=== PATIENT | female | born 1975 | race Two or more races ===

== ENCOUNTER 2017-03-15 00:24 | Inpatient (IN) | payer OTHER ==
[~2017-03-15] VITALS: Ht 165.1 cm; Wt 92.5 kg
--- NOTE | 2017-03-15 02:47 | NUR ---
TELEVISION CAMERAMAN ADMIN NOTES PT WAS TRANSFERRED FROM [facility] VIA AMBULANCE. FAMILY AT BEDSIDE. PT IS A/O X4, NO SIGNS OF SOB OR DISTRESS. COMPLAINTS OF HEADACHE AND DIZZINESS. PT IS SB 55 ON TELE MONITOR. HISTORY OF TAI DYSRHYTHMIAS, ASTHMA, ANXIETY, ADHD, RA. PT STATES THAT SHE USUALLY TAKES NITRO FOR CHEST PAIN AND PAIN WOULD BE RELIEVED BUT SHE RAN OUT OF HER PRESCRIPTION. BED IS IN LOW AND LOCKED POSITION, CALL LIGHT WITHIN REACH. WILL CONTINUE TO MONITOR PT
[2017-03-15 03:23] VITALS: BP 126/67
[2017-03-15] MEDS ORDERED: Z GUARD REMEDY 2 OZ OINT TP PRN (04:00)
[2017-03-15] MEDS ORDERED: HYDROCODONE/APAP 5/325MG 1 EACH TABLET PO PRN (04:00)
[2017-03-15] MEDS ORDERED: ONDANSETRON HCL/PF 4 MG/2 ML VIAL IVP PRN (04:00)
[2017-03-15] MEDS ORDERED: MORPHINE SULFATE INJ 2 MG/ML DISP.SYRIN IV PRN (04:00)
[2017-03-15] MEDS ORDERED: NITROGLYCERIN 0.4 MG/TAB BOTTLE SL PRN (04:00)
[2017-03-15] MEDS ORDERED: MAG HYDROX/AL HYDROX/SIMETH 30 ML UDC PO PRN (04:00)
[2017-03-15] MEDS ORDERED: MAGNESIUM HYDROXIDE 30 ML UDC PO PRN (04:00)
[2017-03-15 04:07] LABS: BASOPHILS % (AUTO) 0.5 % (0.0-2.0); EOSINOPHILS # (AUTO) 0.1 /CMM (0.0-0.7); EOSINOPHILS % (AUTO) 1.3 % (0.0-6.0); HEMATOCRIT 35 % (33-45); HEMOGLOBIN 11.8 g/dL (11.5-14.8); LYMPHOCYTES # (AUTO) 2.7 /CMM (0.8-4.8); MEAN CORPUSCULAR HEMOGLOBIN 31 PG (26.0-33.0); MEAN CORPUSCULAR HGB CONC 34 g/dl (31.0-36.0); MEAN CORPUSCULAR VOLUME 93 fL (82-100); MONOCYTES # (AUTO) 0.6 /CMM (0.1-1.30); MONOCYTES % (AUTO) 7.9 % (2.0-12.0); NEUTROPHILS # (AUTO) 3.7 /CMM (1.8-8.9); NEUTROPHILS % (AUTO) 52.3 % (43.0-81.0); PLATELET COUNT (AUTO) 223 /CMM (150-450); RDW COEFFICIENT OF VARIATION 13.3 (11.5-15.0); RED BLOOD CELL COUNT(AUTO) 3.79 MIL/uL (4.0-5.2); WHITE BLOOD COUNT (AUTO) 7.2 K/uL (4.3-11.0)
[2017-03-15] MEDS ORDERED: ACETAMINOPHEN 325 MG TABLET ONE (04:13)
[2017-03-15] MEDS: ACETAMINOPHEN 325 MG TABLET PO PRN ×2 (04:15→14:07)
[2017-03-15 04:18] LABS: CALCIUM, SERUM 8.6 mg/dL (8.5-10.1); CARBON DIOXIDE 27 mmol/L (21-32); CHLORIDE 108 mmol/L (98-107); CREATININE 0.9 mg/dL (0.6-1.3); GLUCOSE 105 mg/dL (74-106); POTASSIUM 3.7 mmol/L (3.5-5.1); SODIUM SERUM 142 mmol/L (136-145); UREA NITROGEN, BLOOD 11 mg/dL (7-18)
[2017-03-15 04:23] LABS: ALANINE AMINOTRANSFERASE 87 U/L (12-78); ALBUMIN 3.6 g/dL (3.4-5.0); ALKALINE PHOSPHATASE 49 U/L (46-116); ASPARTATE AMINOTRANSFERASE 33 U/L (15-37); BILIRUBIN,TOTAL 0.3 mg/dL (0.2-1.0); MAGNESIUM 1.8 mg/dL (1.8-2.4); PHOSPHORUS 4.3 mg/dL (2.5-4.9); TOTAL PROTEIN, SERUM 6.8 g/dL (6.4-8.2)
[2017-03-15 04:24] LABS: TROPONIN I < 0.017 ng/mL (0.00-0.056)
[2017-03-15 04:31] LABS: CHOLESTEROL 180 mg/dL (<200); HDL CHOLESTEROL 31 mg/dL (40-60); LDL 120 mg/dL (0-99); THYROID STIMULATING HORMONE 3.264 uIU/mL (0.358-3.74); TRIGLYCERIDES 208 mg/dL (30-150)
--- NOTE | 2017-03-15 06:23 | NUR ---
MAIL PROCESSING EQUIPMENT MECHANIC CLOSING NOTES PT IS IN BED RESTING. NO SIGNS OF SOB OR DISTRESS. BREATHING EVENLY AND UNLABORED ON RA. NO ACUTE CHANGES. SPECIMEN CUP AT BEDSIDE FOR URINE ANALYSIS. BED IS IN LOW AND LOCKED POSITION, CALL LIGHT WITHIN REACH. WILL ENDORSE TO DAYSHIFT Addendum: 03/15/17 at 0627 by LENA FOURNIER PT IS SB -50 ON THE MONITOR, LOWEST IS 48
--- NOTE | 2017-03-15 07:20 | NUR ---
RN OPENING NOTES RECEIVED PATIENT IN BED RESTING. A/OX4. NO ACUTE DISTRESS, NO SOB NOTED. IV SITE INTACT AND PATENT. BED IN LOWEST POSITION, LOCKED, SIDERAILS UPX2. CALL LIGHT IN REACH. WILL CONTINUE TO MONITOR ACCORDINGLY.
[2017-03-15 08:00] VITALS: BP 101/63
[2017-03-15] MEDS ORDERED: REGADENOSON 0.4 MG/5 ML DISP.SYRIN IVP ONE (09:30)
[2017-03-15] MEDS ORDERED: ASPIRIN 81 MG TAB.CHEW PO SCH (09:30)
[2017-03-15] MEDS ORDERED: NITR0.4T6 SL (09:39)
[2017-03-15] MEDS ORDERED: OMEP20CA10 PO (09:39)
[2017-03-15] MEDS ORDERED: EZET10TA PO (09:39)
[2017-03-15] MEDS ORDERED: OMEG1CAP55 PO (09:39)
[2017-03-15] MEDS ORDERED: CARI350T PO (09:39)
[2017-03-15] MEDS ORDERED: SIMV20TA6 PO (09:39)
[2017-03-15] MEDS ORDERED: CALC-883 PO (09:39)
[2017-03-15] MEDS ORDERED: BUPR300T52 PO (09:45)
[2017-03-15] MEDS ORDERED: TOPI100T11 PO (09:45)
[2017-03-15] MEDS ORDERED: ALLO300T2 PO (09:45)
[2017-03-15] MEDS ORDERED: COLC0.6C3 PO (09:45)
--- NOTE | 2017-03-15 12:00 | NUR ---
RN NOTES PATIENT WENT TO STRESS TEST ACCOMPANIED BY JOSE VIA WHEELCHAIR.
[2017-03-15 13:06] LABS: APPEARANCE,URINE CLEAR (CLEAR); BILIRUBIN,URINE NEGATIVE (NEGATIVE); BLOOD, URINE NEGATIVE Ery/uL (NEGATIVE); COLOR,URINE YELLOW (YELLOW); KETONES,URINE NEGATIVE (NEGATIVE); LEUKOCYTE ESTERASE ,URINE NEGATIVE (NEGATIVE); NITRITE, URINE NEGATIVE (NEGATIVE); PROTEIN,URINE NEGATIVE (NEGATIVE); UGLUCOSE NEGATIVE (NEGATIVE); UROBILINOGEN,URINE 0.2 EU/dL (0.2)
[2017-03-15 16:00] VITALS: BP 118/63
[2017-03-15 16:05] VITALS: BP 118/63
--- NOTE | 2017-03-15 17:09 | NUR ---
RN NOTES DR ZOEY ANDREW ON BEDSIDE, STRESS TEST NEGATIVE; OK TO DISCHARGE PATIENT PER MD.
--- NOTE | 2017-03-15 17:45 | NUR ---
RN NOTES DISCHARGE PATIENT IN STABLE CONDITION ACCOMPANIED BY . DISCHARGE INSTRUCTIONS/TEACHING GIVEN, VERBALIZED UNDERSTANDING. DISCHARGE PAPERWORK GIVEN TO PATIENT. IV SITE D/C, NO COMPLICATIONS NOTED.
== END 2017-03-15 17:45 | disposition home or self-care (01) | DRG 203 ==
LOC: TELE 02:40 → MED 10:58
PROVIDERS: ADMIT Nurse Practitioner Acute Care; ATTEND Nurse Practitioner Acute Care
DX: R07.89 Other chest pain (principal); E66.01 Morbid (severe) obesity due to excess calories; F41.9 Anxiety disorder, unspecified; G89.29 Other chronic pain; Z68.33 Body mass index [BMI] 33.0-33.9, adult
CPT/HCPCS: 36415; 71010-TC; 80053-TC; 80061-TC; 81000-TC; 83735-TC; 84100-TC; 84443-TC; 84484-TC; 85025-TC; 87081-TC; 93307-TC; A9502; J2785; Z7610

== ENCOUNTER 2017-07-01 00:02 | Emergency (ER) | payer OTHER ==
[~2017-07-01] VITALS: Ht 162.6 cm; Wt 68.0 kg
[~2017-07-01 00:02] MED LIST: ALLO300T2 PO; BUPR300T52 PO; CALC-883 PO; CARI350T PO; COLC0.6C3 PO; EZET10TA14 PO; NITR0.4T48 SL; OMEG1CAP55 PO; OMEP20CA10 PO; SIMV20TA6 PO; TOPI100T PO
--- NOTE | 2017-07-01 00:10 | NUR ---
PT BIB FAMILY, PT C/O LOWER ABD PAIN X 1 HOUR PT DENIES N/V/D. PT STATES LL ABD PAIN THAT RADIATES TO THE RL ABD AND TO THE LOWER BACK, WITH PAIN LEVEL 9/10. PT STATES SHE "HAD A CYST REMOVAL SURGERY AND RIGHT OOPHORECTOMY (2014)." RESP EVEN AND UNLABORED. VSS AND NAD NOTED. SKIN PINK AND WARM TO TOUCH. AWAITNG MD DYER. URINE COLLECTED, CALLED LAB FOR PICKUP
[2017-07-01] MEDS ORDERED: MORPHINE SULFATE INJ 4 MG/ML DISP.SYRIN ONE ×2 (00:47→02:18)
[2017-07-01] MEDS ORDERED: ONDANSETRON HCL/PF 4 MG/2 ML VIAL ONE ×2 (00:47→02:24)
[2017-07-01 00:50] LABS: BASOPHILS % (AUTO) 0.4 % (0.0-2.0); EOSINOPHILS # (AUTO) 0.1 /CMM (0.0-0.7); EOSINOPHILS % (AUTO) 1.2 % (0.0-6.0); HEMATOCRIT 36 % (33-45); HEMOGLOBIN 12.4 g/dL (11.5-14.8); LYMPHOCYTES # (AUTO) 2.4 /CMM (0.8-4.8); LYMPHOCYTES % (AUTO) 26.4 % (20.0-44.0); MEAN CORPUSCULAR HEMOGLOBIN 32 PG (26.0-33.0); MEAN CORPUSCULAR HGB CONC 35 g/dl (31.0-36.0); MEAN CORPUSCULAR VOLUME 93 fL (82-100); MONOCYTES # (AUTO) 0.7 /CMM (0.1-1.30); MONOCYTES % (AUTO) 7.7 % (2.0-12.0); NEUTROPHILS # (AUTO) 5.8 /CMM (1.8-8.9); NEUTROPHILS % (AUTO) 64.3 % (43.0-81.0); PLATELET COUNT (AUTO) 223 /CMM (150-450); RDW COEFFICIENT OF VARIATION 12.9 (11.5-15.0); RED BLOOD CELL COUNT(AUTO) 3.85 MIL/uL (4.0-5.2)
--- NOTE | 2017-07-01 00:53 | NUR ---
THIEN PAGED PER RADIOLOGY.
[2017-07-01 01:00] LABS: APPEARANCE,URINE CLEAR (CLEAR); BILIRUBIN,URINE NEGATIVE (NEGATIVE); BLOOD, URINE NEGATIVE Ery/uL (NEGATIVE); COLOR,URINE YELLOW (YELLOW); KETONES,URINE NEGATIVE (NEGATIVE); LEUKOCYTE ESTERASE ,URINE NEGATIVE (NEGATIVE); NITRITE, URINE NEGATIVE (NEGATIVE); PROTEIN,URINE NEGATIVE (NEGATIVE); UGLUCOSE NEGATIVE (NEGATIVE); UROBILINOGEN,URINE 0.2 EU/dL (0.2)
[2017-07-01] MEDS ORDERED: IV NS 0.9% 500 ML BAG IV ONE (01:00)
[2017-07-01] MEDS ORDERED: MORPHINE SULFATE INJ 2 MG/ML DISP.SYRIN IV ONE ×2 (01:00→02:30)
[2017-07-01] MEDS ORDERED: ONDANSETRON HCL/PF 4 MG/2 ML VIAL IVP ONE (01:00)
[2017-07-01 01:04] LABS: CALCIUM, SERUM 8.8 mg/dL (8.5-10.1); CREATININE 0.8 mg/dL (0.6-1.3); POTASSIUM 3.7 mmol/L (3.5-5.1)
[2017-07-01 01:10] LABS: ALBUMIN 3.9 g/dL (3.4-5.0); BILIRUBIN,DIRECT 0.1 mg/dL (0.0-0.2); BILIRUBIN,TOTAL 0.2 mg/dL (0.2-1.0); TOTAL PROTEIN, SERUM 7.7 g/dL (6.4-8.2)
--- NOTE | 2017-07-01 01:20 | NUR ---
Patient is resting comfortably in bed with eyes closed. Easily aroused. VSS
--- NOTE | 2017-07-01 01:35 | NUR ---
THIEN AT BEDSIDE
[2017-07-01 01:37] LABS: INR 0.93 (0.87-1.13)
[2017-07-01] MEDS ORDERED: ONDANSETRON HCL/PF 4 MG/2 ML VIAL IV ONE (02:30)
--- NOTE | 2017-07-01 02:33 | NUR ---
Patient is resting comfortably in bed with eyes closed. Easily aroused. VSS.
--- NOTE | 2017-07-01 03:17 | NUR ---
Patient discharged to home in stable condition. Written and verbal after care instructions given ALONG WITH RX. Patient verbalizes understanding of instruction.IV removed. Catheter intact and site benign. Pressure and 4x4 applied to site. No bleeding noted. Pt ambulated with steady gait. Instructed not to drive.
[2017-07-01 03:20] VITALS: BP 124/84
== END 2017-07-01 03:21 | disposition home or self-care (01) ==
LOC: ER 00:04
DX: D25.9 Leiomyoma of uterus, unspecified (principal); N83.201 Unspecified ovarian cyst, right side; F41.9 Anxiety disorder, unspecified; Z98.51 Tubal ligation status
CPT/HCPCS: 36415; 76856-TC; 80048-TC; 80076-TC; 81000-TC; 84703-TC; 85025-TC; 85730-TC; A4606; J2270; J2405; J7040; Z7610

== ENCOUNTER 2017-08-16 15:08 | Emergency (ER) | payer OTHER ==
[~2017-08-16] VITALS: Ht 167.6 cm; Wt 90.7 kg
--- NOTE | 2017-08-16 17:15 | NUR ---
HEADACHE, BILATERAL LEG TINGLING SENSATION, BOTH EAR PAIN X TUESDAY. NAD NOTED. PT AAO X4, AMB WITH STEADY GAIT. RR EVEN AND UNLABORED.
[2017-08-16 17:28] LABS: BASOPHILS % (AUTO) 0.5 % (0.0-2.0); EOSINOPHILS # (AUTO) 0.1 /CMM (0.0-0.7); EOSINOPHILS % (AUTO) 1.3 % (0.0-6.0); HEMATOCRIT 36 % (33-45); HEMOGLOBIN 12.7 g/dL (11.5-14.8); LYMPHOCYTES # (AUTO) 2.4 /CMM (0.8-4.8); LYMPHOCYTES % (AUTO) 33.9 % (20.0-44.0); MEAN CORPUSCULAR HEMOGLOBIN 32 PG (26.0-33.0); MEAN CORPUSCULAR HGB CONC 35 g/dl (31.0-36.0); MEAN CORPUSCULAR VOLUME 91 fL (82-100); MONOCYTES # (AUTO) 0.4 /CMM (0.1-1.30); MONOCYTES % (AUTO) 5.9 % (2.0-12.0); NEUTROPHILS # (AUTO) 4.1 /CMM (1.8-8.9); NEUTROPHILS % (AUTO) 58.4 % (43.0-81.0); PLATELET COUNT (AUTO) 277 /CMM (150-450); RDW COEFFICIENT OF VARIATION 11.9 (11.5-15.0); RED BLOOD CELL COUNT(AUTO) 3.94 MIL/uL (4.0-5.2)
[2017-08-16] MEDS ORDERED: KETOROLAC TROMETHAMINE INJ 30 MG/ML VIAL IV ONE (17:30)
[2017-08-16] MEDS ORDERED: PROCHLORPERAZINE EDISYLATE 10 MG/2 ML VIAL IVP ONE (17:30)
[2017-08-16] MEDS ORDERED: diphenhydrAMINE HCL 50 MG/ML VIAL IV ONE (17:30)
[2017-08-16] MEDS ORDERED: IV NS 0.9% 1,000 ML BAG IV ONE (17:30)
[2017-08-16 17:39] LABS: CALCIUM, SERUM 9.7 mg/dL (8.5-10.1); CREATININE 0.7 mg/dL (0.6-1.3)
[2017-08-16] MEDS ORDERED: diphenhydrAMINE HCL 50 MG/ML VIAL ONE (17:40)
[2017-08-16] MEDS ORDERED: KETOROLAC TROMETHAMINE INJ 30 MG/ML VIAL ONE (17:41)
[2017-08-16] MEDS ORDERED: PROCHLORPERAZINE EDISYLATE 10 MG/2 ML VIAL ONE (17:41)
[2017-08-16 17:45] LABS: ALBUMIN 3.9 g/dL (3.4-5.0); BILIRUBIN,DIRECT 0.1 mg/dL (0.0-0.2); BILIRUBIN,TOTAL 0.2 mg/dL (0.2-1.0); TOTAL PROTEIN, SERUM 7.9 g/dL (6.4-8.2)
[2017-08-16 18:13] LABS: APPEARANCE,URINE Clear (CLEAR); BILIRUBIN,URINE Negative (NEGATIVE); BLOOD, URINE Trace-intact Ery/uL (NEGATIVE); COLOR,URINE Yellow (YELLOW); KETONES,URINE Negative (NEGATIVE); LEUKOCYTE ESTERASE ,URINE Negative (NEGATIVE); NITRITE, URINE Negative (NEGATIVE); PROTEIN,URINE Negative (NEGATIVE); UGLUCOSE Negative (NEGATIVE); UROBILINOGEN,URINE 0.2 EU/dL (0.2)
[2017-08-16 18:20] LABS: BACTERIA,URINE Rare /HPF (None Seen); SQUAMOUS EPITHELIAL CELL,UR Few /HPF (None Seen); WBC,URINE NONE SEEN /HPF (0-3)
--- NOTE | 2017-08-16 18:22 | NUR ---
MEDICATIONS GIVEN ORDERED
--- NOTE | 2017-08-16 19:06 | NUR ---
REPORT RECEIVED BY ANKIT LOPEZ
--- NOTE | 2017-08-16 20:21 | NUR ---
JEANNE SHAH AT BEDSIDE SPEAKING TO PT AND FAMILY REGARDING RESULTS.
--- NOTE | 2017-08-16 20:33 | NUR ---
IV removed. Catheter intact and site benign. Pressure and 4x4 applied to site. No bleeding noted. Patient discharged to home in stable condition. Written and verbal after care instructions given. Patient verbalizes understanding of instruction. ambulatory with a steady gait.
[2017-08-16 20:34] VITALS: BP 110/87
== END 2017-08-16 20:34 | disposition home or self-care (01) ==
LOC: ER 15:09
DX: R51 Headache (principal); F41.9 Anxiety disorder, unspecified; Z98.51 Tubal ligation status
CPT/HCPCS: 36415; 80048; 80076; 81001; 84703; 85025; 96361; 96374; 96375; 99284; A4606; J0780; J1200; J1885; J7030; Z7610; 81000-TC

== ENCOUNTER 2018-01-29 19:24 | Inpatient (IN) | payer OTHER ==
[~2018-01-29] VITALS: Ht 167.6 cm; Wt 92.5 kg
[2018-01-29] MEDS ORDERED: ASPIRIN 325 MG TABLET ONE (19:58)
[2018-01-29] MEDS ORDERED: NITROGLYCERIN 0.4 MG/TAB BOTTLE ONE (19:58)
[2018-01-29] MEDS ORDERED: IV NS 0.9% 500 ML BAG IV ONE (20:00)
[2018-01-29] MEDS ORDERED: NITROGLYCERIN 0.4 MG/TAB BOTTLE SL ONE (20:00)
[2018-01-29] MEDS ORDERED: ASPIRIN 325 MG TABLET PO ONE (20:00)
[2018-01-29 20:12] LABS: BASOPHILS # (AUTO) 0.1 /CMM (0.0-0.2); HEMATOCRIT 36 % (33-45); HEMOGLOBIN 12.4 g/dL (11.5-14.8); LYMPHOCYTES # (AUTO) 2.6 /CMM (0.8-4.8); LYMPHOCYTES % (AUTO) 27.5 % (20.0-44.0); MEAN CORPUSCULAR HEMOGLOBIN 32 PG (26.0-33.0); MEAN CORPUSCULAR HGB CONC 34 g/dl (31.0-36.0); MEAN CORPUSCULAR VOLUME 94 fL (82-100); MONOCYTES # (AUTO) 0.6 /CMM (0.1-1.30); MONOCYTES % (AUTO) 5.8 % (2.0-12.0); NEUTROPHILS # (AUTO) 6.1 /CMM (1.8-8.9); NEUTROPHILS % (AUTO) 64.7 % (43.0-81.0); PLATELET COUNT (AUTO) 231 /CMM (150-450); RDW COEFFICIENT OF VARIATION 12.3 (11.5-15.0); RED BLOOD CELL COUNT(AUTO) 3.84 MIL/uL (4.0-5.2); WHITE BLOOD COUNT (AUTO) 9.5 K/uL (4.3-11.0)
--- NOTE | 2018-01-29 20:17 | NUR ---
BIB SELF; "CHEST PRESSURE, 02/13 SINCE 2P". PT AAOX3, VSS. PT STS LT SIDE CHEST PAIN / RADIATING TO LT SHOULDER TO LT BACK, CONTINUOUSLY WITH DYSPNEA. DENIES N/V, ARM/JAW PAIN @ THIS TIME. ON MONITOR WITH SB. EKG DONE. WILL CONT TO MONITOR.
[2018-01-29 20:25] LABS: INR 0.88 (0.85-1.15)
[2018-01-29 20:28] LABS: ALANINE AMINOTRANSFERASE 54 U/L (12-78); ALBUMIN 3.5 g/dL (3.4-5.0); ALKALINE PHOSPHATASE 49 U/L (46-116); ASPARTATE AMINOTRANSFERASE 25 U/L (15-37); BILIRUBIN,DIRECT 0.1 mg/dL (0.0-0.2); BILIRUBIN,TOTAL 0.2 mg/dL (0.2-1.0); CALCIUM, SERUM 9.1 mg/dL (8.5-10.1); CARBON DIOXIDE 25 mmol/L (21-32); CHLORIDE 106 mmol/L (98-107); CREATININE 1.1 mg/dL (0.6-1.3); GLUCOSE 102 mg/dL (74-106); SODIUM SERUM 138 mmol/L (136-145); UREA NITROGEN, BLOOD 15 mg/dL (7-18)
[2018-01-29 20:30] LABS: TROPONIN I < 0.017 ng/mL (0.00-0.056)
--- NOTE | 2018-01-29 20:31 | NUR ---
CP 7/10, GIVEN 2ND DOSE OF NITRO 0.4 SL, PT JUAN WELL
--- NOTE | 2018-01-29 20:42 | NUR ---
GIVEN 3RD DOSE OF NITRO 0.4 MG SL. PT STS LT CHEST PAIN 12/13. LAMIN, STRATEGIC PLANNING DIRECTOR AWARE.
--- NOTE | 2018-01-29 21:23 | NUR ---
PT STILL C/O LT SIDE CP, 12/13. DENIES SOB, DIZZINESS, N/V, ARM/JAW PAIN @ THIS TIME. LAMIN, PRE SALES TECHNICAL CONSULTANT AWARE.
--- NOTE | 2018-01-29 21:26 | NUR ---
CALLED NURSING INFORMATION DIRECTOR AND REQUESTED A TELE BED FOR THIS PT.
--- NOTE | 2018-01-29 21:29 | NUR ---
CALLED [facility] FOR PANEL CALL AND ANNEL WAGNER WAS PAGED
[2018-01-29] MEDS ORDERED: NITROGLYCERIN PACKET 1 GM PACKET TOP ONE (21:30)
--- NOTE | 2018-01-29 21:48 | NUR ---
PT IS ASSIGNED TO [facility]#: [id number], DX: CHEST PAIN, AND ACCEPTING: ANNEL WAGNER DNP.
[2018-01-29] MEDS ORDERED: NITROGLYCERIN PACKET 1 GM PACKET ONE (21:54)
--- NOTE | 2018-01-29 22:15 | NUR ---
ADMISSION NOTES: Received report from NEWSPERSON Eliud. Pt was brought to the unit via gurney, admitted for chest pain. Pt was came in to er for chest pressure 9/10 that started since 0200pm and she took her own nitroglycerin medication. Now pt stated she felt a lot better and that its only pressure on her chest area, non radiating, 5/10, left cw nitrobid patch noted. Iv access on right ac patent and flushing well, on hl. No s/s of infiltration or redness noted on iv site. vs taken and recorded. Skin assessment performed and no skin issues noted. Met at bed side. will bring all pt's medication bottle at home. Placed on tele monitoring currently sinus bradycardia hr 50's, per pt this is normal for her, even her son and 2 sisters have same problem. She added that when she's asleep her heart rate drops to 30's, and has worn heart monitor at home as prescribed by her jeeper operator. Oriented pt to unit policy and hourly rounding, use of call light. Inventory of belongings completed by jose miguel de leon. Safety precautions for fall initiated, call light in reach, will continue monitoring pt.
[2018-01-29 22:30] VITALS: BP 127/69
--- NOTE | 2018-01-29 22:30 | NUR ---
rn notes: pt stated she feels fine at the moment, still with 5/10 pressure like pain in the chest area, offered nitroglycerin but pt refused, stated she will call wqhenever she cannot tolerate the pt. She added the pressure is tolerable
[2018-01-29] MEDS ORDERED: ZOLPIDEM TARTRATE 5 MG TABLET PO PRN (23:00)
[2018-01-29] MEDS ORDERED: CARISOPRODOL 350 MG TABLET PO SCH (23:00)
[2018-01-29] MEDS ORDERED: ONDANSETRON HCL/PF 4 MG/2 ML VIAL IVP PRN (23:00)
[2018-01-29] MEDS ORDERED: ACETAMINOPHEN 325 MG TABLET PO PRN (23:00)
[2018-01-29] MEDS: NITROGLYCERIN PACKET 1 GM PACKET TOP SCH (23:00)
[2018-01-29] MEDS ORDERED: MAGNESIUM HYDROXIDE 30 ML UDC PO PRN (23:00)
[2018-01-29 23:59] VITALS: BP 101/56
[2018-01-30] VITALS (11 sets, daily range): BP systolic 96–110; BP diastolic 54–70
[2018-01-30] MEDS ORDERED: NIFE30TA89 PO (00:02)
[2018-01-30] MEDS ORDERED: PREG150C PO (00:02)
--- NOTE | 2018-01-30 00:16 | NUR ---
non admin of nitro bid: pt received nitro bid patch administration in er at 2156 01/29/18, only about 2hrs ago.
[2018-01-30] MEDS: ENOXAPARIN SODIUM 40 MG/0.4 ML DISP.SYRIN SQ SCH ×2 (00:24→22:39)
--- NOTE | 2018-01-30 04:15 | NUR ---
rn notes: pt sleeping at this time, no facial grimace noted, will continue monitoring pt
[2018-01-30] MEDS: NITROGLYCERIN 0.4 MG/TAB BOTTLE SL PRN ×3 (06:05→06:21)
--- NOTE | 2018-01-30 06:06 | NUR ---
PRN NITROGLYCERIN SL: PT C/O CHEST PRESSURE 7/10 REQUESTING FOR NITROGLYCERIN, PRN NITROGLYCERIN ADMINISTERED SL, VS TAKEN AND RECORDED PRIOR TO ADMINISTERING MEDICATION.
--- NOTE | 2018-01-30 06:16 | NUR ---
PRN NITROGLYCERIN: CHEST PRESSURE C/O 7/10 WITHOUT RELIEF, 2ND DOSE OF NITROGLYCERIN SL ADMINISTERED AT THIS TIME, VS TAKEN AND RECORDED 104/56 HR 50, RR 18
--- NOTE | 2018-01-30 06:22 | NUR ---
3RD DOSE OF NITRO SL: VS TAKEN AND RECORDED, PT STILL C/O 7/10 CHEST PAIN RADIATING TO BACK AND LEFT ARM, 3RD DOSE OF NITRO SL ADMINISTERED AT THIS TIME.
--- NOTE | 2018-01-30 06:26 | NUR ---
RN NOTES: CONTACTED MD INFORMATION SYSTEMS SUPERVISOR PT STILL C/O CHEST PRESSURE 7/10 WITH NO RELIEF FROM NITROGLYCERIN SL, NO OTHER PAIN MEDICATION ORDERED FOR CHEST PAIN
--- NOTE | 2018-01-30 06:27 | NUR ---
RN NOTES: RECEIVED CALL FROM DR WAGNER WITH ORDERS TO GIVE MORPHINE 2MG IVP Q2HRS PRN FOR CHEST PAIN, STAT EKG
[2018-01-30 06:31] LABS: BASOPHILS % (AUTO) 0.4 % (0.0-2.0); EOSINOPHILS % (AUTO) 1.4 % (0.0-6.0); HEMATOCRIT 35 % (33-45); HEMOGLOBIN 11.6 g/dL (11.5-14.8); LYMPHOCYTES # (AUTO) 2.6 /CMM (0.8-4.8); LYMPHOCYTES % (AUTO) 34.2 % (20.0-44.0); MEAN CORPUSCULAR HEMOGLOBIN 32 PG (26.0-33.0); MEAN CORPUSCULAR HGB CONC 33 g/dl (31.0-36.0); MEAN CORPUSCULAR VOLUME 98 fL (82-100); MONOCYTES # (AUTO) 0.5 /CMM (0.1-1.30); MONOCYTES % (AUTO) 6.5 % (2.0-12.0); NEUTROPHILS # (AUTO) 4.4 /CMM (1.8-8.9); NEUTROPHILS % (AUTO) 57.5 % (43.0-81.0); PLATELET COUNT (AUTO) 200 /CMM (150-450); RDW COEFFICIENT OF VARIATION 13.3 (11.5-15.0); WHITE BLOOD COUNT (AUTO) 7.7 K/uL (4.3-11.0)
[2018-01-30] MEDS: MORPHINE SULFATE INJ 4 MG/ML DISP.SYRIN IV PRN ×2 (06:42→10:37)
--- NOTE | 2018-01-30 06:42 | NUR ---
PRN MORPHINE: PT C/O 8/10 CHEST PRESSURE RADIATING TO ARM AND BACK PRN MORPHINE 2MG IVP ADMINISTERED AT THIS TIME.
--- NOTE | 2018-01-30 06:47 | NUR ---
RN NOTES: EKG SHOWS SINUS BRADYCARDIA
[2018-01-30 06:48] LABS: ALBUMIN 3.1 g/dL (3.4-5.0); BILIRUBIN,TOTAL 0.2 mg/dL (0.2-1.0); CALCIUM, SERUM 8.3 mg/dL (8.5-10.1); CREATININE 0.8 mg/dL (0.6-1.3); PHOSPHORUS 3.7 mg/dL (2.5-4.9); TOTAL PROTEIN, SERUM 6.5 g/dL (6.4-8.2)
--- NOTE | 2018-01-30 06:58 | NUR ---
RN CLOSING NOTES: PT IN BED, AWAKE,JUST RECEIVED MORPHINE IV FOR C/O CHEST PAIN RADIATING TO BACK AND ARM STATED ITS TOLERABLE. EDUCATION PROVIDED TO THE PT. REMAINS ON SINUS BRADYCARDIA HR 51. ON 2L OXYGEN VIA NC, RESPIRATION EVEN AND UNLABORED. VS REMAINS STABLE, NEEDS ATTENDED. FOR ECHO TODAY. SAFETY PRECAUTIONS FOR FALL REMAINS ENGAGED, CALL LIGHT IN REACH, WILL ENDORSE TO DAY RN FOR CONTUITY OF CARE.
[2018-01-30] MEDS ORDERED: MORPHINE SULFATE INJ 2 MG/ML DISP.SYRIN IV PRN (07:00)
--- NOTE | 2018-01-30 07:52 | NUR ---
MS/RN Patient received Patient received from park attendant. A/O X4, vital signs stable, states that pain is currently 7/10 but has improved since pain medication was administered 20 minutes ago. Safety measurs in place, aware of how to call for help. Will continue to monitor and ensure safety.
[2018-01-30] MEDS: COLCHICINE 0.6 MG TABLET PO SCH (08:28)
[2018-01-30] MEDS: EZETIMIBE 10 MG TABLET PO SCH (08:28)
[2018-01-30] MEDS: ASPIRIN EC 81 MG TABLET.DR PO SCH (08:28)
[2018-01-30] MEDS: ALLOPURINOL 100 MG TABLET PO SCH (08:29)
[2018-01-30] MEDS: PANTOPRAZOLE 40 MG TABLET.DR PO SCH (08:29)
[2018-01-30] MEDS: NITROGLYCERIN PACKET 1 GM PACKET TOP SCH ×2 (08:29→22:29)
[2018-01-30] MEDS: TOPIRAMATE 100 MG TABLET PO SCH (08:29)
[2018-01-30] MEDS: BUPROPION XL 150 MG TAB.ER.24 PO SCH (08:30)
--- NOTE | 2018-01-30 08:56 | NUR ---
MS/RN Mediations Morning medications administered as ordered, nitro paste held due to hypotension /.
[2018-01-30 09:07] LABS: THYROID STIMULATING HORMONE 4.16 uIU/mL (0.358-3.74)
--- NOTE | 2018-01-30 10:40 | NUR ---
MS/RN C/O Chest pain Complaining of chest pain, no radiating to left arm. Dr Mcclain aware, morphine 2mg administered. Will reassess effectiveness.
--- NOTE | 2018-01-30 10:47 | NUR ---
MS/RN S/B Dr Mcclain Seen by Dr cMclain - labs ordered for tomorrow, await cardiac consult.
--- NOTE | 2018-01-30 12:30 | NUR ---
MS/payable representative reading Tele monitor reading SB, heartrate reading 58.
--- NOTE | 2018-01-30 18:10 | NUR ---
MS/RN End note Patient remains in stable condition, pain now 6/10 which per patient is tolerable. Blood pressure on low side but within normal range for patient. Has remained SB - NSR on monitor. All needs attended, will endorse to production supervisor off shift.
--- NOTE | 2018-01-30 20:00 | NUR ---
TELE/RN OPENING NOTES PATIENT IN BED, ALERT, ORIENTED, RESPIRATIONS EVEN AND UNLABORED, SUPERVISED FOR BATHROOM PROVELEGES, SKIN WARM TO TOUCH, TELE READING AT SR 62, ALERT, ORIENTED X4, RIGHT AC GAUGE 20 PATENT, B/P IN LOW SIDE, PROVIDED FLUIDS, MONITORING FOR ANY DISCOMFORT, ON OXYGEN VIA NC AT 2 LITER. WILL MONITOR .PROVIDE FLUIDS, KEEP COMFORTABLE.
[2018-01-30] MEDS ORDERED: SIMVASTATIN 20 MG TABLET PO SCH (22:00)
[2018-01-31 04:00] VITALS: BP 112/60
[2018-01-31 07:17] LABS: BASOPHILS % (AUTO) 0.3 % (0.0-2.0); EOSINOPHILS % (AUTO) 1.1 % (0.0-6.0); HEMATOCRIT 36 % (33-45); HEMOGLOBIN 12.2 g/dL (11.5-14.8); LYMPHOCYTES # (AUTO) 2.4 /CMM (0.8-4.8); MEAN CORPUSCULAR HEMOGLOBIN 32 PG (26.0-33.0); MEAN CORPUSCULAR HGB CONC 34 g/dl (31.0-36.0); MEAN CORPUSCULAR VOLUME 97 fL (82-100); MONOCYTES # (AUTO) 0.5 /CMM (0.1-1.30); MONOCYTES % (AUTO) 6.5 % (2.0-12.0); NEUTROPHILS # (AUTO) 5.1 /CMM (1.8-8.9); NEUTROPHILS % (AUTO) 63.1 % (43.0-81.0); PLATELET COUNT (AUTO) 214 /CMM (150-450); RDW COEFFICIENT OF VARIATION 13.3 (11.5-15.0); RED BLOOD CELL COUNT(AUTO) 3.75 MIL/uL (4.0-5.2); WHITE BLOOD COUNT (AUTO) 8.1 K/uL (4.3-11.0)
[2018-01-31 07:32] LABS: CALCIUM, SERUM 8.6 mg/dL (8.5-10.1); CREATININE 0.9 mg/dL (0.6-1.3); MAGNESIUM 1.9 mg/dL (1.8-2.4); PHOSPHORUS 3.9 mg/dL (2.5-4.9); POTASSIUM 3.7 mmol/L (3.5-5.1)
--- NOTE | 2018-01-31 07:39 | NUR ---
313-1 TELE/RN NOTES PATIENT ABLE TO SLEEP DURING THE NIGHT, MONITORED FOR ANY CHANGES, TELE AT SINUS RHTYM AND SINUS TAI AT 57. PROVIDED FLUIDS, TOOK SIP OF WATER. MONITORED AND WILL ENDORSE TO AM RN FOR MERCEDEZ. CALL LIGHTS WITHIN REACH, BED IN LOCK POSITION,
--- NOTE | 2018-01-31 07:40 | NUR ---
WAITER/WAITRESS CAFETERIA OPENING NOTE RECEIVED PT IN BED FROM SHADE MATCHER RN, AA0X4, DENIES N/V, SOB, PER PT PAIN IS ABLE TO TOLERATE PAIN AT THIS TIME. SB ON DISTRIBUTOR SALES MANAGER. ALL NEEDS ATTENDED TO, SAFETY MEASURES IN PLACE, CALL LIGHT WITHIN REACH, WILL CONTINUE TO MONITOR AND ENSURE SAFETY.
[2018-01-31 08:00] VITALS: BP 101/60
[2018-01-31] MEDS: TOPIRAMATE 100 MG TABLET PO SCH (08:21)
[2018-01-31] MEDS: BUPROPION XL 150 MG TAB.ER.24 PO SCH (08:21)
[2018-01-31] MEDS: ASPIRIN EC 81 MG TABLET.DR PO SCH (08:21)
[2018-01-31] MEDS: EZETIMIBE 10 MG TABLET PO SCH (08:21)
[2018-01-31] MEDS: PANTOPRAZOLE 40 MG TABLET.DR PO SCH (08:21)
[2018-01-31] MEDS: COLCHICINE 0.6 MG TABLET PO SCH (08:21)
[2018-01-31] MEDS: ALLOPURINOL 100 MG TABLET PO SCH (08:22)
--- NOTE | 2018-01-31 09:42 | NUR ---
WAREHOUSE ORDER PICKER LAB REVIEWS ALL MORNING LABS REVIEWED. VALUES WITHIN NORMAL RANGE.
[2018-01-31] MEDS: NITROGLYCERIN PACKET 1 GM PACKET TOP SCH (11:00)
[2018-01-31 12:00] VITALS: BP 104/60
[2018-01-31] MEDS ORDERED: ASPI-1152 PO (14:52)
--- NOTE | 2018-01-31 16:18 | NUR ---
MS BENEFITS ANALYST PLAN PT SEEN BY ARVIN NULL AND CLEARED TO D/C HOME TODAY. INSTRUCTED TO FOLLOW UP WITH CLINICAL CYTOGENETICIST SCIENTIST AND PRIMARY CARE DOCTOR IN FIVE TO TEN DAYS. PER PT, HAS APPOINTMENT WITH CLINICAL CYTOGENETICIST SCIENTIST TOMORROW. PT INSTRUCTED TO START ASPIRIN 81MG QDAY, NO PRESCRIPTION GIVEN MEDICATION IS OTC. TO CONTINUE WITH PREVIOUS HOME MEDICATIONS, NO CHANGE IN DOSAGE OR SCHEDULE. TELE AND NAME BAND REMOVED, HEP LOCK REMOVED AND PRESSURE DRESSING APPLIED, CATHETER INTACT. ALL BELONGINGS ACCOUNTED FOR, PERSONAL PROPERTY LIST SIGNED BY PT. INSTRUCTED PT TO RETURN TO THE NEAREST ER FOR ANY SEVERE CHEST PAIN NOT RELIEVED BY REST. TIME ALLOWED FOR ALL QUESTIONS AND CONCERNS TO BE ADDRESSED. AWAITING TO PROVIDE TRANSPORT HOME.
--- NOTE | 2018-01-31 16:50 | NUR ---
MS SEWAGE PLANT OPERATOR PT DISCHARGED TO MAIN LOBBY WITH AND CREMATORY ATTENDANT.
== END 2018-01-31 16:31 | disposition home or self-care (01) | DRG 203 ==
LOC: ER 19:33 → TELE 22:11 → MED 01-31 15:05
PROVIDERS: ADMIT Nurse Practitioner Acute Care; ATTEND Nurse Practitioner Acute Care
DX: M94.0 Chondrocostal junction syndrome [Tietze] (principal); E66.01 Morbid (severe) obesity due to excess calories; E78.5 Hyperlipidemia, unspecified; G89.4 Chronic pain syndrome; M79.7 Fibromyalgia; Z68.32 Body mass index [BMI] 32.0-32.9, adult; F32.9 Major depressive disorder, single episode, unspecified; M54.5 Low back pain; F41.9 Anxiety disorder, unspecified; M10.9 Gout, unspecified
CPT/HCPCS: 36415; 71045-TC; 80048-TC; 80053-TC; 80061-TC; 80076-TC; 83735-TC; 84100-TC; 84443-TC; 84484-TC; 85025-TC; 85730-TC; 87081-TC; 93307-TC; A4606; J1650; J2270; J2405; J7040; Z7610

== ENCOUNTER 2018-03-13 21:46 | Emergency (ER) | payer OTHER ==
[~2018-03-13] VITALS: Ht 165.1 cm; Wt 95.7 kg
[~2018-03-13 21:46] MED LIST changes: +ASPI-1152 PO; +PREG150C PO
--- NOTE | 2018-03-13 21:50 | NUR ---
PT BIBFAMILY COMPLAINING OF HEADACHE ALL DAY RT ARM PAIN AND NUMBNESS RADIATING TO RT LE X1 HOUR. PT HAS LEFT FACIAL DROOPING AND WEAKNESS IN RIGHT UPPER AND LOWER EXTREMITIES. PT IS AWAKE. DIFFICULTY SPEAKING. SKIN WARM AND INTACT. RESPIRATIONS EVEN AND UNLABORED. PT PLACED IN GOWN AND ON CONTINUOUS CARDIAC MONITORING.
--- NOTE | 2018-03-13 22:08 | NUR ---
CODE STROKE ACTIVATED
--- NOTE | 2018-03-13 22:10 | NUR ---
AWAITING CALL BACK FROM NEUROLOGIST DR. BOUDREAUX
--- NOTE | 2018-03-13 22:10 | NUR ---
DESKTOP SUPPORT ASSOCIATE AT BEDSIDE FOR BLOOD DRAW
[2018-03-13] MEDS ORDERED: IV NS 0.9% 250 ML IV ONE (22:11)
[2018-03-13] MEDS ORDERED: IOHEXOL-350 100 ML VIAL IV ONE (22:11)
[2018-03-13] MEDS ORDERED: CT SWABBABLE VALVE TRANS SET 1 EA INFUS.SET MC ONE (22:11)
--- NOTE | 2018-03-13 22:12 | NUR ---
EKG AT BEDSIDE
--- NOTE | 2018-03-13 22:15 | NUR ---
BROUGHT BY RADIOLOGY TO CT PER ALCS PROTOCOL
--- NOTE | 2018-03-13 22:16 | NUR ---
NEUROLOGIST DR. BOUDREAUX CALLED BACK AND SPOKE WITH DR. MACIAS
[2018-03-13 22:21] LABS: BASOPHILS % (AUTO) 0.3 % (0.0-2.0); EOSINOPHILS % (AUTO) 0.9 % (0.0-6.0); HEMATOCRIT 39 % (33-45); HEMOGLOBIN 12.5 g/dL (11.5-14.8); LYMPHOCYTES # (AUTO) 4.1 /CMM (0.8-4.8); LYMPHOCYTES % (AUTO) 34.1 % (20.0-44.0); MEAN CORPUSCULAR HGB CONC 33 g/dl (31.0-36.0); MEAN CORPUSCULAR VOLUME 95 fL (82-100); MONOCYTES # (AUTO) 0.8 /CMM (0.1-1.30); MONOCYTES % (AUTO) 6.6 % (2.0-12.0); NEUTROPHILS # (AUTO) 6.9 /CMM (1.8-8.9); NEUTROPHILS % (AUTO) 58.1 % (43.0-81.0); PLATELET COUNT (AUTO) 258 /CMM (150-450); RDW COEFFICIENT OF VARIATION 12.9 (11.5-15.0); RED BLOOD CELL COUNT(AUTO) 4.04 MIL/uL (4.0-5.2); WHITE BLOOD COUNT (AUTO) 11.9 K/uL (4.3-11.0)
--- NOTE | 2018-03-13 22:25 | NUR ---
PT BEING EVALUATED BY TELENEUROLOGIST
--- NOTE | 2018-03-13 22:25 | NUR ---
PT BROUGHT BACK FROM RADIOLOGY
[2018-03-13] MEDS ORDERED: ONDANSETRON HCL/PF 4 MG/2 ML VIAL ONE (22:26)
[2018-03-13] MEDS ORDERED: MORPHINE SULFATE INJ 2 MG/ML DISP.SYRIN ONE (22:27)
[2018-03-13] MEDS ORDERED: MORPHINE SULFATE INJ 4 MG/ML DISP.SYRIN ONE (22:27)
[2018-03-13] MEDS: MORPHINE SULFATE INJ 2 MG/ML DISP.SYRIN IV ONE (22:34)
[2018-03-13 22:35] LABS: CALCIUM, SERUM 8.9 mg/dL (8.5-10.1); CARBON DIOXIDE 26 mmol/L (21-32); CHLORIDE 105 mmol/L (98-107); CREATININE 0.8 mg/dL (0.6-1.3); GLUCOSE 80 mg/dL (74-106); INR 0.9 (0.87-1.13); POTASSIUM 3.7 mmol/L (3.5-5.1); SODIUM SERUM 141 mmol/L (136-145); UREA NITROGEN, BLOOD 10 mg/dL (7-18)
[2018-03-13] MEDS: ONDANSETRON HCL/PF - ER 4 MG/2 ML VIAL IV ONE (22:35)
[2018-03-13 22:39] LABS: TROPONIN I < 0.017 ng/mL (0.00-0.056)
[2018-03-13 22:48] LABS: CHOLESTEROL 218 mg/dL (<200); HDL CHOLESTEROL 34 mg/dL (40-60); LDL 149 mg/dL (0-99); TRIGLYCERIDES 302 mg/dL (30-150)
--- NOTE | 2018-03-13 22:50 | NUR ---
CONSENT GIVEN BY PT TO START TPA
--- NOTE | 2018-03-13 23:00 | NUR ---
TPA ADMINSITERED IV LEFT AC 18G. VITAL SIGNS STABLE. PT ON CONTINUOUS CARDIAC MONITORING
[2018-03-13] MEDS: ALTEPLASE 100 MG in WATER FOR INJECTION,STERILE 100 ML IV ONE (23:01)
--- NOTE | 2018-03-13 23:01 | NUR ---
TPA DRIP ADMINISTERED, RATE 78.1 ML/HR. IV LEFT AC 18G. PT IS AWAKE. VITAL SIGNS STABLE. PT STILL ON CONTINUOUS ROVING OR YARN COLOR CHECKER. WILL CONTINUE TO MONITOR ACCORDINGLY.
--- NOTE | 2018-03-13 23:03 | NUR ---
PT BROUGHT BY RADIOLOGY PER ACLS PROTOCOL
--- NOTE | 2018-03-13 23:15 | NUR ---
PT BROUGHT BACK FROM CT
--- NOTE | 2018-03-14 00:01 | NUR ---
TPA INFUSION COMPLETED. NORMAL SALINE INFUSING AT 78.1ML/HR. NO SIGNS OF ADVERSE REACTION. PT AWAKE, SPEAKING TO SPOUSE. NOTED MILD IMPROVEMENT RIGHT UPPER AND LOWER EXTREMITIES. DENIES NEW OR WORSENING SYMPTOMS AT THIS TIME. RESPIRATIONS EVEN AND UNLABORED. NONDIAPHORETIC. PT STILL ON CONTINUOUS THERAPEUTIC RECREATION ASSISTANT AND O2 2L. VITALS SIGNS STABLE. WILL CONTINUE TO MONITOR.
--- NOTE | 2018-03-14 00:30 | NUR ---
Note vijay in EDM - 03/14/18 at 0047 by [place] PT AWAKE. NOTED IMPROVEMENT IN SPEECH AND LEFT UPPER EXTREMITY STRENGTH. VITAL SIGNS STABLE. RESPIRATIONS EVEN AND UNLABORED. SKIN WARM AND INTACT. NO ACUTE DISTRESS NOTED AT THIS TIME. PT ON CONTINUOUS BOILER TENDER
--- NOTE | 2018-03-14 00:34 | NUR ---
RECEIVED A CALLF FROM [facility] NURSE HEAVEN AT [facility] AND WAS TOLD THAT THEY WOULD BE HERE WITHIN 15-20 MIN TO TAKE THE PT. NUMBER FOR REPORT IS [phone], PT IS GOING TO RM #: [id number]
[2018-03-14] MEDS ORDERED: MORPHINE SULFATE INJ 4 MG/ML DISP.SYRIN ONE ×2 (00:36→01:16)
[2018-03-14] MEDS: MORPHINE SULFATE INJ 10 MG/ML DISP.SYRIN IV ONE (00:43)
[2018-03-14 00:45] VITALS: BP 122/66
--- NOTE | 2018-03-14 00:47 | NUR ---
PT AWAKE. NOTED IMPROVEMENT IN SPEECH AND RIGHT UPPER EXTREMITY STRENGTH. VITAL SIGNS STABLE. RESPIRATIONS EVEN AND UNLABORED. SKIN WARM AND INTACT. NO ACUTE DISTRESS NOTED AT THIS TIME. PT ON CONTINUOUS MILITARY PAY CLERK
--- NOTE | 2018-03-14 00:54 | NUR ---
[facility] AT BEDSIDE FOR TRANSFER. REPORT GIVEN TO ANKIT COLLADO FOR MERCEDEZ.
[2018-03-14] MEDS ORDERED: ALTEPLASE 100 MG/VIAL VIAL IV ONE (01:00)
[2018-03-14] MEDS: MORPHINE SULFATE INJ 2 MG/ML DISP.SYRIN IV ONE (01:20)
== END 2018-03-14 01:23 ==
LOC: ER 21:54
DX: I63.9 Cerebral infarction, unspecified (principal); G43.909 Migraine, unspecified, not intractable, without status migrainosus; F17.200 Nicotine dependence, unspecified, uncomplicated; F41.9 Anxiety disorder, unspecified; M19.90 Unspecified osteoarthritis, unspecified site; R29.702 NIHSS score 2; Z98.51 Tubal ligation status; Z79.82 Long term (current) use of aspirin; Z79.899 Other long term (current) drug therapy
CPT/HCPCS: 36415; 70450; 70496; 70498; 71045; 80048; 80061; 82962; 84484; 85025; 85730; 93005; 96374; 96375; 96376; 99291; 99406; A4216; A4606; J2270 ×4; J2405 ×2; J2997; J7050; Q9967; Z7610

== ENCOUNTER 2018-08-01 23:26 | Emergency (ER) | payer OTHER ==
[~2018-08-01] VITALS: Ht 167.6 cm; Wt 90.7 kg
--- NOTE | 2018-08-02 00:11 | NUR ---
PT BIBS. C/O "HAVE HAD A HEADACHE FOR 2 DAYS NOW" -SOB -ACUTE DISTRESS AOX4. -CHANGES IN CONSCIOUSNESS. -ACUTE NEURO DEFICIT.
[2018-08-02] MEDS ORDERED: PROCHLORPERAZINE EDISYLATE 10 MG/2 ML VIAL ONE (00:24)
[2018-08-02] MEDS ORDERED: ONDANSETRON HCL/PF 4 MG/2 ML VIAL ONE (00:24)
[2018-08-02] MEDS: ONDANSETRON HCL/PF 4 MG/2 ML VIAL IVP ONE (00:28)
[2018-08-02] MEDS: PROCHLORPERAZINE EDISYLATE 10 MG/2 ML VIAL IV ONE (00:28)
[2018-08-02] MEDS: IV NS 0.9% 1,000 ML BAG IV ONE (00:28)
[2018-08-02 01:42] VITALS: BP 133/91
== END 2018-08-02 01:52 | disposition home or self-care (01) ==
LOC: ER 23:30
DX: G43.909 Migraine, unspecified, not intractable, without status migrainosus (principal); M79.7 Fibromyalgia; M19.90 Unspecified osteoarthritis, unspecified site; F41.9 Anxiety disorder, unspecified; F17.200 Nicotine dependence, unspecified, uncomplicated; Z86.73 Personal history of transient ischemic attack (TIA), and cerebral infarction without residual deficits; Z98.890 Other specified postprocedural states; Z79.82 Long term (current) use of aspirin; Z79.899 Other long term (current) drug therapy
CPT/HCPCS: 96374; 96375; 99283; A4606; J0780; J2405; J7030

== ENCOUNTER 2018-10-02 13:32 | Emergency (ER) | payer OTHER ==
[~2018-10-02] VITALS: Ht 167.6 cm; Wt 98.0 kg
--- NOTE | 2018-10-02 13:53 | NUR ---
PATIENT ARRIVED AT UNIT AMBULATORY, WITH C/O HEADACHE, BURNING SENSATION ON MID ABDOMEN, FEELING SHAKY
[2018-10-02 14:13] LABS: APPEARANCE,URINE Clear (CLEAR); BILIRUBIN,URINE Negative (NEGATIVE); BLOOD, URINE Trace-intact Ery/uL (NEGATIVE); COLOR,URINE Yellow (YELLOW); KETONES,URINE Negative (NEGATIVE); LEUKOCYTE ESTERASE ,URINE Negative (NEGATIVE); NITRITE, URINE Negative (NEGATIVE); PH,URINE 6.5 (5.0-8.0); PROTEIN,URINE Negative (NEGATIVE); UGLUCOSE Negative (NEGATIVE); UROBILINOGEN,URINE 0.2 EU/dL (0.2)
[2018-10-02] MEDS ORDERED: MORPHINE SULFATE INJ 4 MG/ML DISP.SYRIN ONE (14:16)
[2018-10-02] MEDS ORDERED: FAMOTIDINE/PF INJ 20 MG/2 ML VIAL IV ONE ×2 (14:16→14:30)
[2018-10-02] MEDS ORDERED: ONDANSETRON HCL/PF 4 MG/2 ML VIAL ONE (14:16)
[2018-10-02 14:29] LABS: BACTERIA,URINE Few /HPF (None Seen); SQUAMOUS EPITHELIAL CELL,UR Moderate /HPF (None Seen); YEAST,URINE Few /HPF (None Seen)
[2018-10-02 14:30] LABS: BASOPHILS % (AUTO) 0.5 % (0.0-2.0); EOSINOPHILS % (AUTO) 0.8 % (0.0-6.0); HEMATOCRIT 38 % (33-45); HEMOGLOBIN 12.8 g/dL (11.5-14.8); LYMPHOCYTES % (AUTO) 24.8 % (20.0-44.0); MEAN CORPUSCULAR HGB CONC 34 g/dl (31.0-36.0); MEAN CORPUSCULAR VOLUME 94 fL (82-100); MONOCYTES # (AUTO) 0.6 /CMM (0.1-1.30); MONOCYTES % (AUTO) 7.4 % (2.0-12.0); NEUTROPHILS # (AUTO) 5.3 /CMM (1.8-8.9); NEUTROPHILS % (AUTO) 66.5 % (43.0-81.0); PLATELET COUNT (AUTO) 226 /CMM (150-450); RED BLOOD CELL COUNT(AUTO) 4.02 MIL/uL (4.0-5.2)
[2018-10-02] MEDS ORDERED: ONDANSETRON HCL/PF 4 MG/2 ML VIAL IVP ONE (14:30)
[2018-10-02] MEDS ORDERED: MORPHINE SULFATE INJ 2 MG/ML DISP.SYRIN IV ONE (14:30)
[2018-10-02] MEDS ORDERED: IV NS 0.9% 1,000 ML BAG IV ONE (14:30)
[2018-10-02 14:40] LABS: CALCIUM, SERUM 9.3 mg/dL (8.5-10.1); CREATININE 0.8 mg/dL (0.6-1.3); POTASSIUM 3.9 mmol/L (3.5-5.1)
[2018-10-02] MEDS ORDERED: PREG150C PO (14:41)
[2018-10-02] MEDS ORDERED: ASPI-605 PO (14:42)
[2018-10-02] MEDS ORDERED: NIFE20CA PO (14:43)
[2018-10-02 14:53] LABS: ALBUMIN 3.8 g/dL (3.4-5.0); BILIRUBIN,DIRECT 0.1 mg/dL (0.0-0.2); BILIRUBIN,TOTAL 0.4 mg/dL (0.2-1.0); TOTAL PROTEIN, SERUM 7.6 g/dL (6.4-8.2)
--- NOTE | 2018-10-02 16:23 | NUR ---
Patient discharged to home in stable condition. Written and verbal after care instructions given. Patient verbalizes understanding of instruction. written prescription given to patient
[2018-10-02 16:24] VITALS: BP 115/60
== END 2018-10-02 16:25 | disposition home or self-care (01) ==
LOC: ER 13:38
DX: K80.70 Calculus of gallbladder and bile duct without cholecystitis without obstruction (principal); G43.909 Migraine, unspecified, not intractable, without status migrainosus; F41.9 Anxiety disorder, unspecified; M79.7 Fibromyalgia; M19.90 Unspecified osteoarthritis, unspecified site; F17.200 Nicotine dependence, unspecified, uncomplicated; Z98.890 Other specified postprocedural states; Z86.73 Personal history of transient ischemic attack (TIA), and cerebral infarction without residual deficits; Z79.82 Long term (current) use of aspirin; Z79.899 Other long term (current) drug therapy
CPT/HCPCS: 36415; 76705; 80048; 80076; 81001; 83690; 84703; 85025; 96361; 96374; 96375; 99284; J2270; J2405; J3490; J7030; 81000-TC

== ENCOUNTER 2019-04-04 18:01 | Emergency (ER) | payer OTHER ==
[~2019-04-04] VITALS: Ht 165.1 cm; Wt 94.8 kg
[~2019-04-04 18:01] MED LIST changes: -ASPI-1152 PO; +ASPI-605 PO; -CARI350T PO; -EZET10TA14 PO; +NIFE20CA PO; -NITR0.4T48 SL; -OMEP20CA10 PO; +OMEP20CA11 PO; +SIMV-46 PO; -SIMV20TA6 PO
--- NOTE | 2019-04-04 18:31 | NUR ---
PATIENT ARRIVED AT UNIT AMBULATORY. AAO X 3, NO ACUTE DISTRESS. PATIENT REPORTS RIGHT UPPER/LOWER EXTREMITY PAIN/CRAMPING X 3 WEEKS. PATIENT CONNECTED TO MONITOR. WILL CONTINUE TO MONITOR ACCORDINGLY
[2019-04-04] MEDS ORDERED: TRAMADOL HCL 50 MG TABLET ONE (20:28)
[2019-04-04] MEDS ORDERED: TRAMADOL HCL 50 MG TABLET PO ONE (20:30)
--- NOTE | 2019-04-04 20:36 | NUR ---
Patient discharged to home in stable condition. Written and verbal after care instructions given. Patient verbalizes understanding of instruction.Pt ambulatory with a steady gait
[2019-04-04 20:37] VITALS: BP 118/69
== END 2019-04-04 20:39 | disposition home or self-care (01) ==
LOC: ER 18:01
DX: M06.871 Other specified rheumatoid arthritis, right ankle and foot (principal); M06.841 Other specified rheumatoid arthritis, right hand; R53.1 Weakness; F41.9 Anxiety disorder, unspecified; M79.7 Fibromyalgia; F17.200 Nicotine dependence, unspecified, uncomplicated; Z98.51 Tubal ligation status; Z98.890 Other specified postprocedural states; Z86.73 Personal history of transient ischemic attack (TIA), and cerebral infarction without residual deficits; Z79.82 Long term (current) use of aspirin; Z79.899 Other long term (current) drug therapy
CPT/HCPCS: 73130-TC

== ENCOUNTER 2019-06-06 21:34 | Emergency (ER) | payer OTHER ==
[~2019-06-06] VITALS: Ht 167.6 cm; Wt 97.5 kg
[~2019-06-06 21:34] MED LIST changes: +OMEP-293 PO; -OMEP20CA11 PO
--- NOTE | 2019-06-06 22:00 | NUR ---
bib daughter for c/o heavy vaginal bledding on and natali since 05/10/2019. [id number]
[2019-06-06 22:24] LABS: BASOPHILS % (AUTO) 0.4 % (0.0-2.0); EOSINOPHILS % (AUTO) 2.9 % (0.0-6.0); HEMATOCRIT 34 % (33-45); HEMOGLOBIN 11.1 g/dL (11.5-14.8); LYMPHOCYTES # (AUTO) 2.3 /CMM (0.8-4.8); LYMPHOCYTES % (AUTO) 34.8 % (20.0-44.0); MEAN CORPUSCULAR HGB CONC 33 g/dl (31.0-36.0); MEAN CORPUSCULAR VOLUME 96 fL (82-100); MONOCYTES # (AUTO) 0.6 /CMM (0.1-1.30); MONOCYTES % (AUTO) 8.8 % (2.0-12.0); NEUTROPHILS # (AUTO) 3.5 /CMM (1.8-8.9); NEUTROPHILS % (AUTO) 53.1 % (43.0-81.0); PLATELET COUNT (AUTO) 251 /CMM (150-450); RED BLOOD CELL COUNT(AUTO) 3.52 MIL/uL (4.0-5.2); WHITE BLOOD COUNT (AUTO) 6.7 K/uL (4.3-11.0)
[2019-06-06] MEDS ORDERED: KETOROLAC TROMETHAMINE INJ 60 MG/2 ML VIAL IM ONE (23:41)
[2019-06-07] MEDS ORDERED: KETOROLAC TROMETHAMINE INJ 60 MG/2 ML VIAL IM ONE
--- NOTE | 2019-06-07 00:12 | NUR ---
Patient discharged to home in stable condition. Written and verbal after care instructions given. Patient verbalizes understanding of instruction.
[2019-06-07 00:13] VITALS: BP 126/73
== END 2019-06-07 00:14 | disposition home or self-care (01) ==
LOC: ER 21:39
DX: N93.8 Other specified abnormal uterine and vaginal bleeding (principal); M79.7 Fibromyalgia; M19.90 Unspecified osteoarthritis, unspecified site; F41.9 Anxiety disorder, unspecified; Z98.890 Other specified postprocedural states; Z87.891 Personal history of nicotine dependence; Z79.82 Long term (current) use of aspirin; Z79.899 Other long term (current) drug therapy
CPT/HCPCS: 36415; 76856; 84703; 85025; 96372; 99284; J1885